=== PATIENT | female | born 1980 | race African-American/Black ===

== ENCOUNTER 2024-08-03 03:50 | Emergency (ER) | payer MEDICAID, OTHER ==
--- NOTE | 2024-08-03 03:54 | ED.PDOC ---
Back pain HPI HPI Comments PT PRESENTED TO ED CC BACKPAIN X 1 DAY. PT REPORTS RIGHT SIDED FLANK AND BACK PAIN, (+) NAUSEA, (-) VOMITING, (-) TRAUMA, THROBBING IN NATURE, PAIN 8/10, NO S/S OF DISTRESS NOTED. HX: HTN, HIGH CHOLESTOROL, ANEMIA, ARTHERITIS. PT A&OX4, GCS 15, AMBULATORY ON HER OWN, VSS. 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 Family History Family History: Reviewed,noncontributory to illness Social History Smoker: Non-Smoker Alcohol: Denies ETOH Use Drugs: Denies Drug Use Constitutional: denies: chills, diaphoresis, fatigue, fever, malaise, sweats, weakness, others EENTM: denies: blurred vision, double vision, ear bleeding, ear discharge, ear drainage, ear pain, ear ringing, eye pain, eye redness, hearing loss, mouth pain, mouth swelling, nasal discharge, nose bleeding, nose congestion, nose pain, photophobia, tearing, throat pain, throat swelling, voice changes, others Respiratory: denies: cough, hemoptysis, orthopnea, SOB at rest, shortness of breath, SOB with excertion, stridor, wheezing, others Cardiovascular: denies: chest pain, dizzy spells, diaphoresis, Dyspnea on exertion, edema, irregular heart beat, left arm pain, lightheadedness, palpita tions, PND, syncope, others Gastrointestinal: reports: nausea; denies: abdomen distended, abdominal pain, blood streaked bowels, constipated, diarrhea, dysphagia, difficulty swallowing, hematemesis, melena, poor appetite, poor fluid intake, rectal bleeding, rectal pain, vomiting, others Genitourinary: reports: flank pain; denies: abnormal vagina bleeding, burning, dyspareunia, dysuria, frequency, hematuria, incontinence, pain, , vagina discharge, urgency, others Neurological: denies: dizziness, fainting, headache, left sided numbness, left sided weakness, numbness, paresthesia, pre-existing deficit, right sided numbness, right sided weakness, seizure, speech problems, tingling, tremors, weakness, others Musculoskeletal: denies: back pain, gout, joint pain, joint swelling, muscle pain, muscle stiffness, neck pain, others Integumetry: denies: bruises, change in color, change in hair/nails, dryness, laceration, lesions, lumps, rash, wounds, others Allergic/Immunocompromised: denies: Difficulty Healing, Frequent Infections, Hives, Itching, others Hematologic/Lymphatic: denies: anemia, blood clots, easy bleeding, easy bruising, swollen glands, others Endocrine: denies: excessive hunger, excessive sweating, excessive thirst, excessive urination, flushing, intolerance to cold, intolerance to heat, unexplained weight gain, unexplained weight loss, others Psychiatric: denies: anxiety, bipolar disorder, depression, hopeless, panic disorder, schizophrenia, sleepless, suicidal, others Physical Exam General Appearance: No Apparent Distress, Normal HEENT: Pharynx Normal Neck: Full Range of Motion, Non-Tender Respiratory: Lungs Clear, No Respiratory Distress, Normal Breath Sounds Cardiovascular: No Edema, No JVD, No Murmur, No Gallop, Normal Peripheral Pulses, Regular Rate/Rhythm Breast Exam: Deferred Gastrointestinal: No Organomegaly, Non Tender, No Pulsatile Mass, Normal Bowel Sounds, Soft, Other (NEGATIVE CVA TENDERNESS) Genitalia: Deferred Pelvic: Deferred Rectal: Deferred Extremities: Normal capillary refill, Normal inspection, Normal range of motion, Non-tender, No pedal edema Musculoskeletal : Apperance: Normal Neurologic: Alert, statue maker II-XII nml as Tested, No Motor Deficits, Normal Affect, Normal Mood, No Sensory Deficits Cerebellar Function: Normal Reflexes: Normal Skin: Dry, Normal Color, Warm Lymphatic: No Adenopathy Was a procedure done? Was a procedure done?: No Back Pain Differential Dx Differential Diagnosis: Fracture, Musculoskeletal Pain, Strain X-Ray, Labs, Meds, VS Vital Signs Date Time Temp Pulse Resp B/P (MAP) Pulse Ox O2 Delivery O2 Flow Rate FiO2 08/03/24 06:10 97.5 65 18 144/73 (96) 100 97.5 08/03/24 06:10 65 18 100 Room Air 08/03/24 04:17 97.8 70 18 129/92 (104) 100 97.8 Lab Test 08/03/24 05:15 08/03/24 05:05 Range/Units White Blood Count 6.1 4.4-10.8 10^3/uL Red Blood Count 5.32 H 4.0-5.20 10^6/uL Hemoglobin 13.7 12.2-16.2 g/dL Hematocrit 41.3 36.0-46.0 % Mean Corpuscular Volume 77.5 L 80.0-100.0 fL Mean Corpuscular Hemoglobin 25.7 L 28.0-32.0 pg Mean Corpuscular Hemoglobin Concent 33.2 32.0-36.0 g/dL Red Cell Distribution Width 18.7 H 11.8-14.3 % Platelet Count 189 140-450 10^3/uL Mean Platelet Volume 9.1 6.9-10.8 fL Neutrophils (%) (Auto) 68.4 37.0-80.0 % Lymphocytes (%) (Auto) 24.4 10.0-50.0 % Monocytes (%) (Auto) 4.7 0.0-12.0 % Eosinophils (%) (Auto) 1.9 0.0-7.0 % Basophils (%) (Auto) 0.6 0.0-2.0 % Neutrophils # (Auto) 4.1 1.6-8.6 10 ^3/uL Lymphocytes # (Auto) 1.5 0.4-5.4 10 ^3/uL Monocytes # (Auto) 0.3 0-1.3 10 ^3/uL Eosinophils # (Auto) 0.1 0-0.8 10 ^3/uL Basophils # (Auto) 0 0-0.2 10 ^3/uL Nucleated Red Blood Cells 0.2 % Sodium Level 139 136-145 mmol/L Potassium Level 3.3 L 3.5-5.1 mmol/L Chloride Level 104 98-107 mmol/L Carbon Dioxide Level 26 20-31 mmol/L Anion Gap 9 5-15 Blood Urea Nitrogen 13 9-23 mg/dL Creatinine 0.88 0.550-1.02 mg/dL Glomerular Filtration Rate Calc 84 >90 mL/min BUN/Creatinine Ratio 14.8 10.0-20.0 Serum Glucose 115 H 74-106 mg/dL Calcium Level 9.1 8.7-10.4 mg/dL Total Bilirubin 0.7 0.2-1.0 mg/dL Aspartate Amino Transferase (AST) 26 13-40 U/L Alanine Aminotransferase (ALT) 27 7-40 U/L Alkaline Phosphatase 56 46-116 U/L Total Protein 6.9 5.7-8.2 g/dL Albumin 4.3 3.2-4.8 g/dL Urine Color Yellow Yellow Urine Clarity Clear Clear Urine pH 6.0 5.0-9.0 Urine Specific [place] 1.025 1.001-1.035 Urine Protein Negative Negative Urine Ketones Negative Negative Urine Blood Trace H Negative /uL Urine Nitrite Negative Negative Urine Bilirubin Negative Negative Urine Urobilinogen Normal Negative mg/dL Urine Leukocyte Esterase Negative Negative /uL Urine RBC 1 0 - 4 /hpf Urine Microscopic WBC 1 0-5 /HPF Urine Squamous Epithelial Cells Few <5 /hpf Urine Bacteria None seen None Seen /hpf Urine Mucus Few None Seen Urine Glucose Normal Normal mg/dL Current Medications Medications (Trade) Dose Ordered Sig/[place] Route Start Time Stop Time Status Last Admin Ketorolac Tromethamine (Toradol Injection) 30 mg ONCE ONCE IV 08/03/24 05:00 08/03/24 05:01 DC 08/03/24 06:25 Sodium Chloride 1,000 ml @ 1,000 mls/hr Q1H ONCE IV 08/03/24 05:00 08/03/24 05:59 DC 08/03/24 06:22 Potassium Bicarbonate (Klor-Con/Ef) 25 meq ONCE ONCE PO 08/03/24 06:00 08/03/24 06:01 DC 08/03/24 06:25 X-Ray, Labs, Meds, VS Comment COURSE: EXTERNAL MEDICAL RECORDS REVIEWED: [NONE] INDEPENDENT HISTORIANS: [NONE] SOCIAL DETERMINANTS OF HEALTH: [NONE] LABS ORDERED: CBC, CMP and UA REVIEWED AND INTERPRETED RESULTS: . UA positive RBCs, positive blood. positive WBC CBC within normal limits CMP k+ 3.3 IMAGING ORDERED: IMPRESSION: 1. No acute abdominal or pelvic finding. 2. 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 TREATMENTS ORDERED: NONE Toradol 30 mg IV push Normal saline 1000 mL bolus PROCEDURES PERFORMED: NONE CRITICAL CARE TIME: NONE DIAGNOSIS: Likely secondary to dehydration PLAN: Patient to receive Toradol 30 mg IV push, normal saline bolus 1 L, 25 mEq of potassium p.o., and discharged home. BASED ON HISTORY OF PRESENT ILLNESS, AND PHYSICAL EXAM, PATIENT WILL BE DISCHARGED HOME. DISCUSSED PLAN FOR DISCHARGE HOME. Time of 1ST Reevaluation: 03:54 Reevaluation 1ST: Unchanged Time of 2ND Reevaluation: 06:00 Reevaluation 2ND: Unchanged Time of 3RD Reevaluation: 08:45 Reevaluation 3RD: Improved Patient Education/Counseling: Diagnosis, Treatment, Prognosis, Need For Follow Up Family Education/Counseling: No Family Present Departure 1 Departure Time of Disposition: 08:52 Impression: Primary Impression: Dehydration Additional Impression: Flank pain Disposition: 01 HOME / SELF CARE / HOMELESS Condition: Stable Discharged With: Self Critical Care Note Critical Care Time?: No Stability Stability form required: SUJATA Albrecht August 03, 2024 03:54
[2024-08-03 05:16] LABS: Urine Bacteria None Seen /hpf (None Seen)
[2024-08-03 05:24] LABS: Basophils # (auto) 0 10 ^3/uL (0-0.2); Basophils % (auto) 0.6 % (0.0-2.0); Eosinophils # (auto) 0.1 10 ^3/uL (0-0.8); Eosinophils % (auto) 1.9 % (0.0-7.0); Hemoglobin 13.7 g/dL (12.2-16.2); Mean Corpuscular Volume 77.5 fL (80.0-100.0); Monocytes # (auto) 0.3 10 ^3/uL (0-1.3); Red Cell Distribution Width 18.7 % (11.8-14.3)
[2024-08-03 05:26] LABS: Hematocrit 41.3 % (36.0-46.0); Lymphocytes # (auto) 1.5 10 ^3/uL (0.4-5.4); Lymphocytes % (auto) 24.4 % (10.0-50.0); Mean Corpuscular Hemoglobin 25.7 pg (28.0-32.0); Mean Corpuscular Hgb Conc. 33.2 g/dL (32.0-36.0); Monocytes % (auto) 4.7 % (0.0-12.0); Neutrophils # (auto) 4.1 10 ^3/uL (1.6-8.6); Neutrophils % (auto) 68.4 % (37.0-80.0); Nucleated Red Blood Cells % 0.2 %; Platelet Count (auto) 189 10^3/uL (140-450); Red Blood Cells 5.32 10^6/uL (4.0-5.20); White Blood Cell 6.1 10^3/uL (4.4-10.8)
[2024-08-03 05:27] LABS: Urine Blood TRACE /uL (Negative); Urine Clarity Clear (Clear); Urine Color Yellow (Yellow); Urine Mucus FEW (None Seen); Urine Protein, UAD Negative (Negative); Urine Specific Gravity 1.025 (1.001-1.035); Urine Squamous Epithelial Cell FEW /hpf (<5); Urine Urobilinogen Normal (Negative); Urine WBC 1 /HPF (0-5)
[2024-08-03 05:40] LABS: Alanine Aminotransferase 27 U/L (7-40); Alkaline Phosphatase 56 U/L (46-116); Calcium 9.1 mg/dL (8.7-10.4); Carbon Dioxide 26 mmol/L (20-31); Chloride 104 mmol/L (98-107); Sodium 139 mmol/L (136-145)
[2024-08-03 05:41] LABS: Albumin 4.3 g/dL (3.2-4.8); Anion Gap 9 (5-15); Aspartate Aminotransferase 26 U/L (13-40); BUN/Creatinine Ratio 14.8 (10.0-20.0); Bilirubin, Total 0.7 mg/dL (0.2-1.0); Blood Urea Nitrogen 13 mg/dL (9-23); Glucose 115 mg/dL (74-106); Potassium 3.3 mmol/L (3.5-5.1); Total Protein 6.9 g/dL (5.7-8.2)
--- NOTE | 2024-08-03 05:46 | DVH ---
Exam: CT CT AB PEL WO CON-NO ORAL OR IV History: RIGHT-SIDED FLANK PAIN Comparison Study: None TECHNIQUE: Multidetector CT of the abdomen and pelvis was performed from lung bases to pubic symphysi s. Imaging was performed without IV contrast. Axial, coronal and sagittal multiplanar reformats were obtained from the axial data set by the technologist. Radiation optimization: All CT scans at this facility use at least one of these dose optimization adriel hniques: automated exposure control mA and/or kV adjustment per patient size (includes targeted exam s where dose is matched to clinical indication) or iterative reconstruction. Radiation Dose Information: CT Dose: CTDI volume is 26.1 mGy. Dose-length product is 1735.9 mGy*cm FINDINGS: Evaluation of solid organs is limited due to lack of intravenous contrast use. Imaged portions of the lung bases appear unremarkable. Small hiatal hernia. Liver, gallbladder, spleen, pancreas, and adrenal glands appear unremarkable. The left kidney is loca kt in the midline at the level of L5. There is no evidence of hydronephrosis or calculus. No evidence of bowel obstruction or focal bowel wall thickening. Uterus is anteverted and retroflexed .. No free fluid, free air, or adenopathy. Moderate to severe degenerative changes of the lumbar spine. IMPRESSION: 1. No acute abdominal or pelvic finding. 2. 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
[2024-08-03 06:10] VITALS: BP 144/73; PULSE 65; RESP 18; TEMP 97.5; O2SAT 100
[2024-08-03] MEDS: SODIUM CHLORIDE 0.9% 1,000 ML IV ONE (06:22)
[2024-08-03] MEDS: POTASSIUM EFFERVESENT TAB 25 MEQ PO ONE (06:25)
[2024-08-03] MEDS: KETOROLAC TROMETH 30 MG/ML 1ML VIAL IV ONE (06:25)
== END 2024-08-03 08:52 | disposition home or self-care (01) ==
LOC: ER 03:50
DX: E86.0 Dehydration (principal); I10 Essential (primary) hypertension; F41.9 Anxiety disorder, unspecified; E78.5 Hyperlipidemia, unspecified
CPT/HCPCS: 36415; 74176; 80053; 81001; 85025; 96361; 96374; 99285; J1885; J7030